=== PATIENT | female | born 1980 | race Caucasian/White ===

== ENCOUNTER 2024-09-05 15:07 | Emergency (ER) | payer MEDICARE, MEDICAID, SELFPAY ==
--- NOTE | ~2024-09-05 | CT_ITS ---
CLINICAL HISTORY: ams CT HEAD WITHOUT CONTRAST Comparison: None Findings: There is motion artifact. No acute intracranial hemorrhage, extra-axial fluid collection, hydrocephalus or midline shift. No significant atrophy-like change No significant white matter disease. There is no sinus or mastoid fluid. Visualized orbits: No acute abnormalities. There is no acute fracture. IMPRESSION: 1. Motion affected study. No definite acute intracranial process. This document has been electronically signed by: Chantal White DO on 09/05/2024 18:40:19
--- NOTE | ~2024-09-05 | CT_ITS ---
CLINICAL HISTORY: Elevated liver enzymes CT abdomen and pelvis without contrast Comparison: None Findings: Trace bilateral pleural fluid present. The gallbladder is surgically absent. The liver is borderline enlarged. There may be very subtle nodularity of the hepatic contour, and early changes related to cirrhosis are not excluded. The spleen is mildly enlarged. The pancreas and bilateral adrenal glands are unremarkable in appearance by noncontrast CT evaluation. No renal stones. No hydronephrosis or hydroureter. No bowel obstruction, pneumoperitoneum, or pneumatosis. There are postsurgical changes of the stomach suggesting prior gastric bypass. Mesh material in place at the anterior abdominal wall, suggesting prior hernia repair. Pelvic contents unremarkable. No bladder wall thickening. Normal appendix. There are fractures of the left inferior ischiopubic ramus and left superior ischial ramus which may be chronic or subacute in etiology based on their appearance. Multilevel sclerotic endplate changes identified of the mid to lower lumbar spine. Multilevel degenerative disc disease/vacuum disc phenomenon also present at the lumbar spine. IMPRESSION: 1. No acute inflammatory process identified within the abdomen or pelvis. 2. Borderline hepatomegaly. There is subtle nodularity of the hepatic contour and early changes related to cirrhosis are not excluded. Clinical correlation is advised. 3. Mild splenomegaly. 4. Fractures present at the left superior ischial ramus and left inferior ischiopubic ramus which may be chronic or subacute in etiology based on their appearance This document has been electronically signed by: Carlos Alberto Lang MD on 09/05/2024 21:47:11
[2024-09-05 15:17] VITALS: BP 134/100; PULSE 96; RESP 16; TEMP 37; O2SAT 98; BMI 37.1
--- NOTE | 2024-09-05 15:29 | ED.AMS ---
HPI - Altered Mental Status General Chief Complaint: Altered Mental Status Stated Complaint: from rehab, needs higher level of care per staff Time Seen by Provider: 09/05/24 15:21 History of Present Illness HPI narrative: Patient is a 43-year-old female from [facility] rehab sent in by staff for being more lethargic more drowsy. Patient denies having any complaints. No chest pain or shortness breath no dizziness no nausea no vomiting no new medication not suicidal not homicidal denies drinking any alcohol denies using any recreational drugs sent in for further evaluation. Related Data Allergies Allergy/AdvReac Type Severity Reaction Status Date / Time No Known Allergies Allergy Verified 09/05/24 15:27 Review of Systems Review of Systems: No fever no chills no chest pain or shortness of breath Yes all other systems are reviewed and are negative [facility] Past Medical History Attestation statement: The following information was validated with the patient. Physical Exam ED Vital Signs: Vital Signs - 24 hr 09/05/24 15:17 Temperature 98.6 F Pulse Rate 96 Respiratory Rate 16 Blood Pressure 134/100 H Pulse Oximetry 98 Oxygen Delivery Method Room Air BMI result Body Mass Index 37.1 Appearance: Alert. Oriented X3. No acute distress. Eyes: Pupils equal, round and reactive to light. ENT: Pharynx normal. Neck: Normal inspection. Neck supple. No lymph nodes noted. No crepitus CVS: Normal heart rate and rhythm. Pulses normal. Normal S1 and S2 Respiratory: No respiratory distress. Breath sounds normal. No Wheezing. No rales Abdomen: Soft and nontender. No rigidity. No distention. good BS x4 Skin: Skin warm and dry. Normal skin color. Normal skin turgor. Extremities: No lower extremity edema. Neurovascular intact to all extremities. No Lacerations. No Rash Neuro: Oriented X 3. No motor deficit. No sensory deficit. Moving all extermities. No slurred speech Medical Decision Making Medical Decision Making MDM Narrative: Neurologically intact not in any acute distress. Ambulated in the ED. labs ordered. Electrolytes ordered. Patient was seen at [facility] yesterday. Tox screen was done and then was sent back. Will do a more extensive workup including labs CT scan urine U tox. Currently in stable condition no acute distress Discharge Plan Discharge Clinical Impression: Altered mental status Patient Disposition: Still a Patient
--- NOTE | 2024-09-05 15:45 | PC.NURSE ---
labs obtained/sent to lab by [facility]). pt continues to rest in no apparent distress. pending CT to be completed at this time. plan of care ongoing.
[2024-09-05 15:50] LABS: MANUAL DIFF FLAG NO
[2024-09-05 15:54] LABS: Basophils Absolute Auto 0.1 X10*3/uL (0.0-0.2); Basophils Percent Auto 0.7 % (0-2); Eosinophils Absolute Auto 0.3 X10*3/uL (0.0-0.4); Eosinophils Percent Auto 3.3 % (0-4); Hematocrit 33.3 % (37.0-47.0); Hemoglobin 10.4 g/dl (12.0-16.0); Imm Gran Abs Auto 0.02 X10*3/uL (0.00-0.03); Imm Gran Pct Auto 0.2 % (0.0-0.4); Lymphocytes Absolute Auto 1.9 X10*3/uL (1.2-4.9); Lymphocytes Percent Auto 23.3 % (20-40); Mean Corpuscular HGB Conc 31.2 g/dl (31.0-35.0); Mean Corpuscular Hemoglobin 26.2 pg (27.0-33.0); Mean Corpuscular Volume 83.9 fL (80.0-98.0); Monocytes Absolute Auto 0.9 X10*3/uL (0.1-1.2); Monocytes Percent Auto 10.8 % (2-11); Neutrophils Absolute Auto 5.1 x10*3/uL (2.0-8.3); Neutrophils Percent Auto 61.7 % (45-73); Platelet Count 225 X10*3/uL (160-400); Red Blood Count 3.97 X10*6/uL (4.20-5.50); Red Cell Distribution Width 15.6 % (11.0-16.0); White Blood Count 8.2 X10*3/uL (4.8-10.8)
[2024-09-05 16:04] LABS: Ammonia 49 umol/L (13-55)
[2024-09-05 16:08] LABS: Ethanol < 10 mg/dL
[2024-09-05 16:15] LABS: Alanine Aminotransferase 474 U/L (0-31); Albumin Level 3.4 g/dL (3.5-5.0); Anion Gap 10 (12-20); Aspartate Amino Transferase 407 U/L (5-31); Bilirubin Direct 0.1 mg/dL (0.0-0.5); Bilirubin Total 0.4 mg/dL (0.0-1.0); Blood Urea Nitrogen 11 mg/dL (9-16); Calcium 8.6 mg/dL (8.4-10.2); Carbon Dioxide 26 mmol/L (22-29); Chloride 108 mmol/L (96-108); Creatinine Clr Calc Pharmacy 143.4; Estimated Glomerular Filt Rate > 60; Glucose Random 81 mg/dL (60-115); Potassium 4.6 mmol/L (3.3-5.1); Sodium 139 mmol/L (135-145); Total Protein 6.9 g/dL (6.5-8.0)
[2024-09-05 16:24] LABS: HCG Quantitative < 2 mIU/mL
[2024-09-05 16:32] LABS: TSH reflex Free T4 2.14 uIU/mL (0.32-4.0)
--- NOTE | 2024-09-05 17:10 | PC.NURSE ---
ambulatory to the restroom w/ a strong steady gait. no use of assistive devices needed. urine specimen obtained/sent to lab.
[2024-09-05 17:11] LABS: Alkaline Phosphatase 123 U/L (39-117)
[2024-09-05 17:16] LABS: Appearance Urine Clear; Color Urine Yellow; Glucose Urine UA Negative (Negative); Leukocyte Esterase Urine Negative (Negative); Nitrite Urine Negative (Negative); Specific Gravity - Urine 1.015 (1.005-1.025); Urine Blood Negative (Negative); Urine Ketones Negative (Negative); Urine Protein Negative (Neg-Trace)
[2024-09-05 17:19] LABS: Bacteria Urine None Seen (None Seen); Hyaline Casts Urine 0-2 /LPF (0-2); RBC Urine 0-2 /HPF (0-2); Squamous Epithelial Cell Urine 0-2 /HPF (0-2); WBC Urine 0-5 /HPF (0-5)
[2024-09-05 17:21] LABS: Amphetamine Screen Urine Not Detected (Not Detect); Barbiturates, Urine Not Detected (Not Detect); Benzodiazepines Screen Urine Not Detected (Not Detect); Buprenorphine Scr Not Detected (Not Detect); Cannabinoid Screen Urine POSITIVE (Not Detect); Cocaine Screen Urine Not Detected (Not Detect); Fentanyl, urine Not Detected (Not Detect); Methadone Screen, Urine Positive (Not Detect); Opiate Screen Urine Not Detected (Not Detect); Oxycodone Screen Urine Not Detected (Not Detect); Phencyclidine Screen Urine Not Detected (Not Detect)
--- NOTE | 2024-09-05 18:00 | PC.NURSE ---
pt to CT at this time. plan of care ongoing.
[2024-09-05 18:10] VITALS: BP 118/69; PULSE 73; RESP 16; TEMP 36.3; O2SAT 95
[2024-09-05 23:10] VITALS: BP 133/83; PULSE 99; RESP 18; TEMP 36.5; O2SAT 96
--- NOTE | 2024-09-05 23:52 | PC.NURSE ---
T/w attempted to contact [facility] in [place]. Phone [phone] is out of service. [place] area loss prevention manager [phone] unavailable, Phone number for Viktoriya Waterman RN [phone] number out of service. decide for case management eval. Meds verified and Attempt to call HC and verify methadone. Awaiting for call back from director for dose verification.
[2024-09-06] VITALS (8 sets, daily range): BP systolic 109–133; BP diastolic 63–83; PULSE 66–74; RESP 16–18; TEMP 36.5–36.7; O2SAT 93–96
[2024-09-06] MEDS: TiZANidine HCL 4 MG TABLET PO ×3 (00:24→14:57)
[2024-09-06] MEDS: Gabapentin 600 MG TABLET PO ×3 (00:24→14:57)
[2024-09-06] MEDS: Prazosin HCL 1 MG CAPSULE 2 MG PO (00:24)
[2024-09-06] MEDS: cloNIDine HCL 0.1 MG TABLET PO ×2 (00:24→09:40)
--- NOTE | 2024-09-06 07:03 | PC.NURSE ---
t/w spoke with [facility] [employer] and verified medical pathologist. 125 mg once a day of methadone. Shagufta direct number [phone] and said to call with any questions. Shagufta reports that there was a concern brought up about the pt being over sedated and if methadone dose was too high. Pt was due for a post methadone assessment tomorrow with [facility]. Pt has been drowsy but able to manage all ADL's independently going to the bathroom, making needs know, requesting and eating food independently. Pt is on medications that in combination with methadone could be causing this effect.
--- NOTE | 2024-09-06 08:23 | MHC.CM.ED ---
Addendum entered by Rayna Knight 09/06/24 08:50: Received return telephone call from Kalina. Laila's ext at [facility] is [phone]. T/W was able to leave a voicemail requesting return telephone call in regards to patient using the main [facility] telephone number: [phone]. Original Note: Received case management consult overnight from Dr Jacobson. Patient came to the ER from [facility] in [place]. They feel patient needs higher level of care. Per medical record, patient was scheduled to have her methadone assessment today. Attemted to reach the [facility] at [phone]. Telephone number is out of service. Attempted to reach their transportation cell phone at [phone]. No answer and voicemail not set up. Spoke with Kalina at [facility]. Malorie verified [phone] is the telephone number for the house. Spoke with Chad at [facility] via telephone at [phone]. Chad provided Edith Del Real's direct number of [phone]. Edith will not be in the office before 9am. Will attempt to reach Edith after 9am. Continue to monitor for d/c needs.
--- NOTE | 2024-09-06 09:22 | MHC.CM.ED ---
Received telephone call from Laila of [facility] in [place]. Laila states their residents need to be able to independently complete ADL's in order to stay in their facility. Staff found 3 bags of urine soaked laundry and state patient has not been attending group. Therefore they will not be able to accept her back. Laila is wondering if [facility] would be a better fit. Laila also states [facility] can be reached at ext. [phone] for more information. Referral made to Recovery Team to see if they are able to assist with this. Continue to monitor for d/c needs.
[2024-09-06] MEDS: Escitalopram Oxalate 10 MG TABLET PO (09:39)
[2024-09-06 09:40] LABS: Alanine Aminotransferase 449 U/L (0-31); Albumin Level 3.4 g/dL (3.5-5.0); Alkaline Phosphatase 123 U/L (39-117); Anion Gap 7 (12-20); Aspartate Amino Transferase 383 U/L (5-31); Bilirubin Direct 0.2 mg/dL (0.0-0.5); Bilirubin Total 0.4 mg/dL (0.0-1.0); Blood Urea Nitrogen 9 mg/dL (9-16); Calcium 8.8 mg/dL (8.4-10.2); Carbon Dioxide 26 mmol/L (22-29); Chloride 109 mmol/L (96-108); Creatinine Clr Calc Pharmacy 150.5; Estimated Glomerular Filt Rate > 60; Glucose Random 98 mg/dL (60-115); Potassium 4.2 mmol/L (3.3-5.1); Sodium 138 mmol/L (135-145); Total Protein 6.8 g/dL (6.5-8.0)
--- NOTE | 2024-09-06 10:01 | PHA.MEDREC ---
Pharmacy Consult ? Medication Reconciliation Pharmacy has completed the medication reconciliation, utilized list from [facility] and matched with claims.
--- NOTE | 2024-09-06 10:22 | MHC.CM.ED ---
Patient remains in ER. After speaking with Reshma of Recovery Team and MARIE Kraft Director, Care Team consult requested in order to investigate if issues with ADL's are behavioral related. Paola MARTINEZ aware. Continue to monitor for d/c needs.
--- NOTE | 2024-09-06 11:33 | MHC.CARE ---
Pt arrives at the ED via ambulance[facility].? She arrives as staff expressed concern that she has not been attending to her ADLs, and appears lethargic. CARE Team has been asked to consult on this case. Pt is alert and oriented x4 and is assessed on a consult at bedside in the main ED.? She is dressed in hospital attire, appears older than her stated age, and her grooming is unremarkable.? Pt?s speech is mumbled and slurred making understanding her somewhat difficult and necessitated asking her to repeat herself several times during the encounter.? Pt?s eye contact is moderate, she appears to make an effort to maintain eye contact but appears heavy lidded and drowsy. Pt reports poor sleep, she stated that she has difficulty getting to sleep and staying asleep.? She attributes this to back and hip pain that is ?constant?.? During the night she struggles to find a comfortable sleeping position and will often get fragmented periods of sleep and is often tossing and turning due to the discomfort.? She reports that she seldom awakens refreshed. Pt stated that approximately 5 months ago she weighed 130lbs, and has put on a great deal of weight since that time.? She reports that her hip and back pain has worsened since she put the extra weight on and her sleep has become more interrupted.? Pt reports that she can no longer comfortably walk and can only walk for short distances now. Pt denies HI, SI, , and self-harm.? She endorses a remote hx of one suicide attempt via overdose on pills.? Collateral report from pt?s Mother states that this occurred while she was in [employer] when she was at or around 18 or 19 years old. Pt endorses a hx of depression and anxiety.? She denies any current anxiety or depression.? She reports a dx of PTSD, pt?s Mother stated an unconfirmed, reported dx of ADHD. Pt denies AVH and any hx of such sx, collateral report from her Mother corroborates this account.? Her thought process appears linear and organized.? Pt?s insight, judgement, and impulse control appears unimpaired. Pt reports she has untreated Hepatitis C. CARE Team speaks with pt?s Mother, Ms. Gayle Esclaona, to gather collateral information.? Ms. Escalona reports that she took a phone call from pt yesterday who complained of lethargy and was having difficulty staying awake.? Ms. Escalona reports pt ?Has always been drowsy? and attributes that to the substances she has been taking. Pt has struggled with chronic substance use and homelessness at baseline.? She began using marijuana at or around the age of 18 y/o, after which she began using cocaine, heroin, and later fentanyl. Pt?s toxicology screen is positive for marijuana only. Given that pt is denying SI and any sx of mental illness, she appears to be at low risk for intentional self-harm.? Pt?s sx do not appear to be the result of a mental illness.? Currently, pt does not appear to meet the criteria for an inpatient psychiatric admission and there would be no clear goal for such an admission. CARE Team will advise the provider of the findings.
--- NOTE | 2024-09-06 11:58 | HE.PHANOTE ---
METHADONE Dose: 125mg, last dose 09/05/2024 per Shagu[facility]a at [facility]. Note from Mariza MORATAYA says take home bottle but does not say how many.
[2024-09-06] MEDS: methADONE HCl 20 MG/2 ML ORAL.CONC 125 MG PO (12:10)
--- NOTE | 2024-09-06 13:23 | MHC.CM.ED ---
Patient cleared by Care Team. Patient aware [facility] ESCALONA will not accept patient back. Patient verbalized understanding. Requesting to take a shower. Brianna MORATAYA aware. Patient requesting to go to [facility] in [place]. Lyft will be arranged. Brianna MORATAYA and Paola MARTINEZ aware. Continue to monitor for d/c needs.
[2024-09-06] MEDS: Ibuprofen 600 MG TABLET PO (14:57)
[2024-09-06] MEDS: Pregabalin 75 MG CAPSULE PO (14:57)
== END 2024-09-06 15:13 | disposition home or self-care (01) ==
PROVIDERS: Emergency Medicine Emergency Medical Services; Registered Nurse Emergency; Emergency Provider Internal Medicine; PCP Internal Medicine
DX: R41.82 Altered mental status, unspecified (principal); R79.89 Other specified abnormal findings of blood chemistry; R16.1 Splenomegaly, not elsewhere classified; Z86.19 Personal history of other infectious and parasitic diseases
CPT/HCPCS: 36415; 70450; 74176; 80048; 80076; 80307; 81001; 82140; 84443; 84702; 85025; 99285

== ENCOUNTER → 2024-09-05 15:27 | Outpatient (BNV) | payer MEDICAID, SELFPAY | PROVIDERS: Emergency Provider Emergency Medicine Emergency Medical Services; PCP Internal Medicine; Visit Provider Radiology Diagnostic Radiology | DX: R16.0 Hepatomegaly, not elsewhere classified (principal); R16.1 Splenomegaly, not elsewhere classified; R74.01 Elevation of levels of liver transaminase levels; S32.692A Other specified fracture of left ischium, initial encounter for closed fracture; S32.592A Other specified fracture of left pubis, initial encounter for closed fracture; R41.82 Altered mental status, unspecified | CPT/HCPCS: 70450; 74176 ==